=== PATIENT | female | born 1970 | race Caucasian/White ===

== ENCOUNTER 2016-10-19 09:31 | Emergency (ER) | payer SELFPAY ==
[~2016-10-19 09:31] MED LIST: ANTI-ITCH28 GM TP; ATIVAN-DPS1 MG PO; BENADRYL-DPS25 MG PO; CELEXA DPS20 MG PO; CLARITIN DPS10 MG PO; FLAGYL-DPS500 MG PO; MIRALAX PACKET17 GM PO; NICODERM CQ1 EAC1 TD
--- NOTE | 2016-10-25 11:01 | ER ---
ADMIT: 10/19/2016 RM/LOC: ER [facility] MR#: [id number] [address] [facility] [address] [place] [phone] NAMRATA REINOSO [address] [facility] [place] [address] Emergency Room Report SEX: F AGE: 46 : 1970 DATE: 10/19/2016 Namrata is a 46-year-old female who brought herself to the emergency room today seeking some help for her insomnia. She is extremely hyperactive and anxious. She stated that she has not been able to sleep a good restful sleep since February. 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 Her past medical history includes bipolar disorder, schizophrenia. She has had drug use and abuse as well as alcoholism history, she says that she is sober, she has been at [facility]. She has also been at [facility] in the psychiatric area. She is very well Versed on her medications, antipsychotics, benzos, and so on. She states that she started studying nursing and it is enough for her to know what she has been given and what she is not. She is very apprehensive about going to the psychiatrists in town. She pretty much knows them all and has had some knowledge of their practice and can name the ones that she likes or dislike. While I am talking to her, she picks the phone up and has one thought after another, very recurrent flight of ideas. She calls a friend to tell them that she is in the ER, then she realizes that is a friend that just gotten out of fpc dating some guys. In other words, her conversation is really not well constructed, so after trying to convince her that we could help her and getting her back in the room, I sat her down and nurse and myself were able to speak with her little bit and try to calm her down, but any time we tried to help her with medications, she refuses it. She specifically said that she needed IV fluids to hydrate her, but as I am getting ready to do the procedure with the nurse, she decides that that is not what she wants and she gets up. I finally got the nurse call Dr. Rangel to come in and visited with the patient. After evaluating her, and he let the police go in and do their assessment but she denies suicidal ideation or any plan and Dr. Rangel states that there is nothing we can do. So, she is released on her own recognizance. Police decided that they were going to go in and talk to her and if she would ADMIT: 10/19/2016 RM/LOC: ER [facility] MR#: [id number] [address] [place] [phone] NAMRATA REINOSO [address] [place] [address] Emergency Room Report SEX: F AGE: 46 : 1970 agree to go to [facility], they will take her over but they could not commit her, so as I was still walking out of the ER, Dr. Rangel wrote a script for Xanax 1 mg #2, one in the morning and one at night to try to help her out at this time and left with the police, but decided she did not want to go to [facility]. So she is out on her own. CLINICAL DIAGNOSIS: Insomnia, manic stage. I was unable to do the physical assessment, she refused any and all of the labs that we had. She was very paranoid about the urine test that we requested her to do stating that she forgot to collect the urine in the cup after she went to the bathroom. The patient left the ER. CHAGO Farrell / Ney Rangel MD / gabriel JOB #: [id number] CC: Ney Rangel MD, Attending Physician Juventino Pulido MD, Family Physician
== END 2016-10-19 12:30 | disposition home or self-care (01) ==
LOC: ER 09:31
DX: G47.00 Insomnia, unspecified (principal); F51.9 Sleep disorder not due to a substance or known physiological condition, unspecified; F30.9 Manic episode, unspecified; F41.9 Anxiety disorder, unspecified; F10.21 Alcohol dependence, in remission

== ENCOUNTER 2016-10-24 15:38 | Emergency (ER) | payer SELFPAY ==
--- NOTE | 2016-10-25 11:01 | ER ---
ADMIT: 10/24/2016 RM/LOC: ER [facility] MR#: [id number] [address] [facility] [address] [place] [phone] NAMRATA REINOSO [address] [place] [place], [place] [address] Emergency Room Report SEX: F AGE: 46 : 1970 DATE: 10/24/2016 CHIEF COMPLAINT: Anxious. HISTORY OF PRESENT ILLNESS: This is a 46-year-old white female with multiple psychiatric disorders, but is not suicidal. She was here the other day. We tried to get her EPCD. The police did not want the EPC, did not believe she was danger to herself. She does not have suicidal thoughts, but she has flight of ideas and is significantly anxious with this as well. We had given her a few Xanax just to get her through. She does not want to be admitted to any psych facility. She has refused these all the time. She does have a history of substance abuse, but she has also been dry for sometime as well. PAST MEDICAL HISTORY: Significant history of substance abuse, but still it has not reoccurred. She has significant psychiatric disorders, but is not taking any medicine, refused to take medicine. ALLERGIES: SULFA, AUGMENTIN, AND CHANTIX. FAMILY SOCIAL HISTORY: I do believe she is a smoker or has been in the past. Nothing more. REVIEW OF SYSTEMS: CONSTITUTIONAL: Negative. RESPIRATORY: Negative. Rest of the review of systems is negative. NEUROPSYCHIATRIC: Again, she refuses any psychiatric help. PHYSICAL EXAMINATION: GENERAL: A little agitated. VITAL SIGNS: Stable. She is afebrile. She is not suicidal. DIRECTOR FOOD AND BEVERAGE: She is alert. She is oriented. She has pressured speech. She has no other associated findings at this time. Rest of the exam is negative per the last time. ADMIT: 10/24/2016 RM/LOC: ER [facility] MR#: [id number] [facility] [address] [phone] NAMRATA REINOSO [address] [place], [place] [id number] Emergency Room Report SEX: F AGE: 46 : 1970 DIAGNOSIS: 1. Psychiatric disorder, unknown etiology. 2. Anxiety. TREATMENT: At this time, she has also had significant substance abuse, so her primary Dr. Pulido did not want to give her anymore benzodiazepines. Police are here, she will be released to their custody. They are going to take her to [facility] for further evaluation, but again they are not EPC her, but she is in their custody. CONDITION AT DISCHARGE: Fair. Ney Rangel MD/ gabriel JOB #: [id number] CC: Ney Rangel MD, Attending Physician Juventino Pulido MD, Family Physician
== END 2016-10-24 15:50 | disposition home or self-care (01) ==
LOC: ER 15:38
DX: F41.1 Generalized anxiety disorder (principal); F99 Mental disorder, not otherwise specified; Z88.2 Allergy status to sulfonamides